=== PATIENT | female | born 1965 | race Caucasian/White ===

== ENCOUNTER → 2017-02-05 | Day surgery (SDC) | payer MEDICARE, MEDICAID ==
[~2017-02-05] MED LIST: Dexamethasone 4 MG/ML SDV IV ONE; Glycopyrrolate 0.2 MG/ML SDV IVPUSH ONE; Lactated Ringers 1,000 ML IV SCH; Midazolam 1 MG/ML 2 ML SDV IV ONE; Neostigmine Methylsulfate 10 MG/10 ML MDV IV ONE; Ondansetron 4 MG/2 ML SDV IV ONE; Propofol 200 MG/20 ML SDV IV ONE; Rocuronium 50 MG/5 ML Vial IV ONE; fentaNYL 100 MCG/2 ML SDV IV ONE
[2017-02-05 12:59] VITALS: BP 137/80
== END ==
LOC: CC.SDS 09:20
PROVIDERS: ATTEND Physician Assistant Medical
DX: K02.9 Dental caries, unspecified (principal); F41.9 Anxiety disorder, unspecified; I10 Essential (primary) hypertension; E78.00 Pure hypercholesterolemia, unspecified; E83.42 Hypomagnesemia; E55.9 Vitamin D deficiency, unspecified; Z88.8 Allergy status to other drugs, medicaments and biological substances; Z79.899 Other long term (current) drug therapy; Z98.890 Other specified postprocedural states; Z72.0 Tobacco use
CPT/HCPCS: 00170; 41899; J1100; J2250; J2405; J2704; J2710; J3010; J7120

== ENCOUNTER → 2017-09-25 | Day surgery (SDC) | payer MEDICARE, MEDICAID ==
[~2017-09-25] MED LIST changes: -Dexamethasone 4 MG/ML SDV IV ONE; -Glycopyrrolate 0.2 MG/ML SDV IVPUSH ONE; -Midazolam 1 MG/ML 2 ML SDV IV ONE; -Neostigmine Methylsulfate 10 MG/10 ML MDV IV ONE; -Ondansetron 4 MG/2 ML SDV IV ONE; -Rocuronium 50 MG/5 ML Vial IV ONE; -fentaNYL 100 MCG/2 ML SDV IV ONE
[2017-09-25 08:57] VITALS: BP 132/73
--- NOTE | 2017-09-25 09:15 | OR ---
DATE OF OPERATION: 09/25/2017 PREOPERATIVE DIAGNOSIS: SCREENING COLONOSCOPY. POSTOPERATIVE DIAGNOSIS: SCREENING COLONOSCOPY. SURGEON: Dylan Bond MD PROCEDURE: COLONOSCOPY. ANESTHESIA: ELECTRICIAN MASTER. COMPLICATIONS: None. SPECIMEN: None. FINDINGS: Normal full-length colonoscopy. RECOMMENDATIONS: Followup colonoscopy every 10 years. INDICATIONS: Patient was in for a physical with her primary provider Dr. Nat Bassett. Dr. Johns recommended a screening colonoscopy. DESCRIPTION OF PROCEDURE: The patient was prepped and draped, placed in the left lateral decubitus position. A lubricated Olympus colonoscope was inserted and easily advanced to the cecum. Direct visualization of the ileocecal valve and appendiceal orifice was accomplished. Bowel prep was fine. Upon withdrawal, throughout the length of the colon I could find no signs of polyps, mass, ulceration, bleeding sites. No vascular abnormalities or signs of colitis. There were no polyps through the length of the colon or significant diverticula. The rectal vault was benign. Retroflexion in the rectum showed no perianal lesions. Air was suctioned. Scope was removed without complication. The patient was stable in recovery room. Prior to the colonoscopy I did insert a small speculum as Dr. Johns could not get a Pap smear done at the time of this female's physical. Very difficult as she has a very small vaginal orifice and it was hard to even separate the speculum ends, but I was able to get a swab of the posterior cuff regions, I suspect cervix. I also did a rectal exam, Hemoccult was negative. JENNIFER/WON /[id number]
== END ==
LOC: CC.SDS 07:08
PROVIDERS: ATTEND Family Medicine
DX: Z12.11 Encounter for screening for malignant neoplasm of colon (principal); I10 Essential (primary) hypertension; J30.9 Allergic rhinitis, unspecified; E78.5 Hyperlipidemia, unspecified; F41.9 Anxiety disorder, unspecified; R56.9 Unspecified convulsions; M81.0 Age-related osteoporosis without current pathological fracture; F79 Unspecified intellectual disabilities; Z79.899 Other long term (current) drug therapy; Z88.5 Allergy status to narcotic agent; Z88.8 Allergy status to other drugs, medicaments and biological substances
CPT/HCPCS: 00812; 87624; G0121; G0145; J2704; J7120